=== PATIENT | female | born 1990 | race Caucasian/White ===

== ENCOUNTER 2017-06-24 18:00 | Emergency (ER) | payer SELFPAY ==
--- NOTE | 2017-06-24 18:22 | EDM.PDOC ---
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 Patient has had multiple miscarriages prior she is extremely sophisticated in the very knowledgeable regarding her general medical condition and history Review of systems: As per history of present illness and below otherwise all systems reviewed and negative. Past medical history: As per history of present illness and as reviewed below otherwise noncontributory. Surgical history: As per history of present illness and as reviewed below otherwise noncontributory. Social history: No reported history of drug or alcohol abuse. Family history: As per history of present illness and as reviewed below otherwise noncontributory. Physical exam: HEENT: Atraumatic, normocephalic, pupils reactive, negative for conjunctival pallor or scleral icterus, mucous membranes moist, throat clear, neck supple, nontender, trachea midline. Lungs: Clear to auscultation, breath sounds equal bilaterally, chest nontender. Heart: S1S2, regular, negative for clicks, rubs, or JVD. Abdomen: Soft, nondistended, nontender. Negative for masses or hepatosplenomegaly. Negative for costovertebral tenderness. Pelvis: Stable nontender. Genitourinary: Deferred. Rectal: Deferred. Extremities: Atraumatic, negative for cords or calf pain. Neurovascular unremarkable. Neuro: Awake, alert, oriented. Cranial nerves II through XII unremarkable. Cerebellum unremarkable. Motor and sensory unremarkable throughout. Exam nonfocal. Diagnostics: CBC CMP quantitative beta pelvic ultrasound UA ABO Rh Therapeutics: None Impression: #1 vaginal bleeding #2 history of SLE Definitive disposition and diagnosis as appropriate pending reevaluation and review of above. - Related Data Allergies Allergy/AdvReac Type Severity Reaction Status Date / Time doxycycline Allergy Hives Verified 06/24/17 18:29 iodine Allergy Anaphylactic Verified 06/24/17 18:29 Shock latex Allergy Anaphylactic Verified 06/24/17 18:29 Shock shellfish derived Allergy Anaphylactic Verified 06/24/17 18:29 Shock strawberry Allergy Anaphylactic Verified 06/24/17 18:29 Shock Tricyclic Compounds Allergy Hives Verified 06/24/17 18:29 ED ROS GENERAL - Review of Systems Review Of Systems: ROS reveals no pertinent complaints other than HPI. ED EXAM, GENERAL - Physical Exam Exam: See Below (See dictation) Course - Vital Signs Last Recorded V/S: Last Vital Signs Temp 36.4 C 06/24/17 18:15 Pulse 90 06/24/17 18:15 Resp 18 06/24/17 18:15 BP Pulse Ox 98 06/24/17 18:15 - Orders/Labs/Meds Orders: Active Orders 24 hr Category Date Time Status OB 1st Tri Sgl 1st Gest [US] Stat Exams 06/24/17 18:19 Taken Labs: Laboratory Tests 06/24/17 06/24/17 06/24/17 Range/Units 18:27 18:27 18:27 WBC 8.14 (4.0-11.0) K/uL RBC 5.15 (4.30-5.90) M/uL Hgb 13.6 (12.0-16.0) g/dL Hct 41.5 (36.0-46.0) % MCV 80.6 (80.0-98.0) fL MCH 26.4 L (27.0-32.0) pg MCHC 32.8 (31.0-37.0) g/dL RDW Std Deviation 39.5 (28.0-62.0) fl RDW Coeff of Ly 14 (11.0-15.0) % Plt Count 278 (150-400) K/uL MPV 9.70 (7.40-12.00) fL Neut % (Auto) 39.4 L (48.0-80.0) % Lymph % (Auto) 53.8 H (16.0-40.0) % [place] % (Auto) 5.0 (0.0-15.0) % Eos % (Auto) 1.6 (0.0-7.0) % Baso % (Auto) 0.2 (0.0-1.5) % Neut # (Auto) 3.2 (1.4-5.7) K/uL Lymph # (Auto) 4.4 H (0.6-2.4) K/uL R[place] # (Auto) 0.4 (0.0-0.8) K/uL Eos # (Auto) 0.1 (0.0-0.7) K/uL Baso # (Auto) 0.0 (0.0-0.1) K/uL Nucleated RBC % 0.0 /100WBC Nucleated RBCs # 0 K/uL Sodium 137 (136-146) mmol/L Potassium 4.3 (3.5-5.1) mmol/L Chloride 103 (98-110) mmol/L Carbon Dioxide 26 (21-31) mmol/L BUN 8 (6.0-23.0) mg/dL Creatinine 0.8 (0.6-1.5) mg/dL Est Cr Clr Drug Dosing 108.44 mL/min Estimated GFR (MDRD) > 60.0 ml/min Glucose 226 H (60-110) mg/dL Calcium 8.8 (8.8-10.8) mg/dL Total Bilirubin 0.2 (0.1-1.5) mg/dL AST 20 (5-40) IU/L ALT 23 (8-54) IU/L Alkaline Phosphatase 91 (40-150) Total Protein 8.3 H (6.0-8.0) g/dL Albumin 3.9 (3.5-5.0) g/dL Globulin 4.4 H (2.0-3.5) g/dL Albumin/Globulin Ratio 0.9 L (1.3-2.8) HCG, Quant < 1.2 mIU/mL Urine Color Urine Appearance Urine pH (5.0-8.0) Ur Specific [place] (1.001-1.035) Urine Protein (NEGATIVE) mg/dL Urine Glucose (UA) (NEGATIVE) mg/dL Urine Ketones (NEGATIVE) mg/dL Urine Occult Blood (NEGATIVE) Urine Nitrite (NEGATIVE) Urine Bilirubin (NEGATIVE) Urine Urobilinogen (<2.0) EU/dL Ur Leukocyte Esterase (NEGATIVE) Urine RBC (0-2/HPF) Urine WBC (0-5/HPF) Ur Epithelial Cells (NONE-FEW) Urine Bacteria (NEGATIVE) Blood Type O POSITIVE 06/24/17 Range/Units 18:39 WBC (4.0-11.0) K/uL RBC (4.30-5.90) M/uL Hgb (12.0-16.0) g/dL Hct (36.0-46.0) % MCV (80.0-98.0) fL MCH (27.0-32.0) pg MCHC (31.0-37.0) g/dL RDW Std Deviation (28.0-62.0) fl RDW Coeff of Ly (11.0-15.0) % Plt Count (150-400) K/uL MPV (7.40-12.00) fL Neut % (Auto) (48.0-80.0) % Lymph % (Auto) (16.0-40.0) % [place] % (Auto) (0.0-15.0) % Eos % (Auto) (0.0-7.0) % Baso % (Auto) (0.0-1.5) % Neut # (Auto) (1.4-5.7) K/uL Lymph # (Auto) (0.6-2.4) K/uL [place] # (Auto) (0.0-0.8) K/uL Eos # (Auto) (0.0-0.7) K/uL Baso # (Auto) (0.0-0.1) K/uL Nucleated RBC % /100WBC Nucleated RBCs # K/uL Sodium (136-146) mmol/L Potassium (3.5-5.1) mmol/L Chloride (98-110) mmol/L Carbon Dioxide (21-31) mmol/L BUN (6.0-23.0) mg/dL Creatinine (0.6-1.5) mg/dL Est Cr Clr Drug Dosing mL/min Estimated GFR (MDRD) ml/min Glucose (60-110) mg/dL Calcium (8.8-10.8) mg/dL Total Bilirubin (0.1-1.5) mg/dL AST (5-40) IU/L ALT (8-54) IU/L Alkaline Phosphatase (40-150) Total Protein (6.0-8.0) g/dL Albumin (3.5-5.0) g/dL Globulin (2.0-3.5) g/dL Albumin/Globulin Ratio (1.3-2.8) HCG, Quant mIU/mL Urine Color YELLOW Urine Appearance CLEAR Urine pH 6.0 (5.0-8.0) Ur Specific [place] >= 1.030 (1.001-1.035) Urine Protein NEGATIVE (NEGATIVE) mg/dL Urine Glucose (UA) 500 H (NEGATIVE) mg/dL Urine Ketones NEGATIVE (NEGATIVE) mg/dL Urine Occult Blood LARGE H (NEGATIVE) Urine Nitrite NEGATIVE (NEGATIVE) Urine Bilirubin NEGATIVE (NEGATIVE) Urine Urobilinogen 0.2 (<2.0) EU/dL Ur Leukocyte Esterase NEGATIVE (NEGATIVE) Urine RBC 4-10 (0-2/HPF) Urine WBC 0-2 (0-5/HPF) Ur Epithelial Cells FEW (NONE-FEW) Urine Bacteria FEW (NEGATIVE) Blood Type Departure - Departure Time of Disposition: 20:20 Disposition: Home, Self-Care 01 Condition: Good Clinical Impression: Vaginal bleeding - Discharge Information Referrals: PCP,None [Primary Care Provider] - Forms: ED Department Discharge Additional Instructions: The following information is given to patients seen in the emergency department who are being discharged to home. This information is to outline your options for follow-up care. We provide all patients seen in our emergency department with a follow-up referral. The need for follow-up, as well as the timing and circumstances, are variable depending upon the specifics of your emergency department visit. If you don't have a primary care physician on staff, we will provide you with a referral. We always advise you to contact your personal physician following an emergency department visit to inform them of the circumstance of the visit and for follow-up with them and/or the need for any referrals to a consulting specialist. The emergency department will also refer you to a specialist when appropriate. This referral assures that you have the opportunity for followup care with a specialist. All of these measure are taken in an effort to provide you with optimal care, which includes your followup. Under all circumstances we always encourage you to contact your private physician who remains a resource for coordinating your care. When calling for followup care, please make the office aware that this follow-up is from your recent emergency room visit. If for any reason you are refused follow-up, please contact the [facility] emergency department at and asked to speak to the emergency department charge nurse. 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
[2017-06-24 18:56] LABS: CHLORIDE,CL 103 mmol/L (98-110); SODIUM,NA 137 mmol/L (136-146)
--- NOTE | 2017-06-27 14:39 | US ---
EXAM DATE: 06/24/17 PATIENT'S AGE: 26 Patient: NAE MACKEY Facility: [place], [place] Site . Site : 1990 Study: US OB Pelvis [id number] 7:46:01 PM Ordering Physician: Rajan Wang Final Report: INDICATION: abd pain/vag bleeding TECHNIQUE: OB ultrasound. COMPARISON: None. FINDINGS: No intrauterine identified. The uterus is grossly unremarkable. The endometrium measures 7 mm and is unremarkable. Both ovaries are visualized and unremarkable with the right ovary measuring 3 x 2.8 x 2.4 cm. The left ovary measures 3.1 x 1.8 x 2.4 cm. Trace free fluid. IMPRESSION: No intrauterine identified. Please correlate with serial beta HCG and pelvic ultrasound. Dictated by Peña Elizondo MD @ 06/24/2017 8:56:05 PM Dictated by: Peña Elizondo MD @ 06/24/2017 20:56:39 (Electronic Signature) Report Signed by Proxy. [facility]
== END 2017-06-24 21:04 | disposition home or self-care (01) ==
LOC: MW.ED 18:00
DX: O20.9 Hemorrhage in early pregnancy, unspecified (principal); Z88.1 Allergy status to other antibiotic agents; Z91.040 Latex allergy status; Z91.013 Allergy to seafood
CPT/HCPCS: 36415; 76801; 76801-26; 80053; 81001; 84702; 85025; 86900; 86901; 99283; 99284-25